=== PATIENT | female | born 1960 | race Caucasian/White ===

== ENCOUNTER 2016-09-21 19:45 | Emergency (ER) | payer MEDICAID ==
[~2016-09-21] VITALS: Ht 165.1 cm; Wt 63.5 kg
--- NOTE | 2016-09-21 20:22 | NUR ---
CALLED FOR TRIAGE; INFORMED "PT WENT TO HER CAR"
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
--- NOTE | 2016-09-21 21:00 | NUR ---
PT WAS SEEN BY DR. HAMMONDS.
--- NOTE | 2016-09-21 21:11 | NUR ---
PT REFUSED TO BE TREATED BY DR. HAMMONDS AND DID NOT WANT US TO CALL THE [employer]. Patient given information related to possible complications, up to and including , which could occur as a result of leaving the hospital at this time. Patient verbalizes understanding of risks involved due to leaving against medical advice. Patient has signed AMA form.
--- NOTE | 2016-09-21 21:11 | NUR ---
Note [email or web address] in EDM - 09/21/16 at 2141 by [email or web address] PT REFUSED TO BE SEEN AND DID NOT WANT US TO CALL THE [employer]. Patient does not wish to BE SEEN by Dr. HAMMONDS. Patient given information related to possible complications, up to and including , which could occur as a result of leaving the hospital at this time. Patient verbalizes understanding of risks involved due to leaving against medical advice. Patient has signed AMA form.
[2016-09-21 21:52] VITALS: BP 112/87
== END 2016-09-21 21:11 | disposition left against medical advice (07) ==
LOC: ER 19:50
DX: T74.21XA Adult sexual abuse, confirmed, initial encounter (principal); J45.909 Unspecified asthma, uncomplicated; Z88.0 Allergy status to penicillin
CPT/HCPCS: A4606; Z7502; Z7610

== ENCOUNTER 2018-10-21 17:08 | Emergency (ER) | payer MEDICAID, OTHER ==
[~2018-10-21] VITALS: Ht 162.6 cm; Wt 66.7 kg
[2018-10-21 17:37] VITALS: BP 131/74
--- NOTE | 2018-10-21 18:20 | NUR ---
PHARMACY TECHNICIAN ASSISTANT IN THE ROOM. PT IS NOT THERE. WILL SEE IF THE PT IS IN THE BATHROOM.
== END 2018-10-21 18:47 | disposition left against medical advice (07) ==
LOC: ER 17:09
DX: J06.9 Acute upper respiratory infection, unspecified (principal); J45.909 Unspecified asthma, uncomplicated; F17.200 Nicotine dependence, unspecified, uncomplicated; Z88.0 Allergy status to penicillin
CPT/HCPCS: Z7502

== ENCOUNTER 2023-01-16 02:06 | Emergency (ER) | payer OTHER ==
[~2023-01-16] VITALS: Ht 165.1 cm; Wt 74.8 kg
[2023-01-16] MEDS ORDERED: IBUPROFEN 400 MG TABLET ONE (03:54)
[2023-01-16] MEDS ORDERED: IBUPROFEN 400 MG TABLET PO ONE (04:00)
[2023-01-16 04:05] VITALS: BP 131/78; TEMP 98.1; O2SAT 98
== END 2023-01-16 04:07 | disposition home or self-care (01) ==
LOC: ER 02:13
DX: R51.9 Headache, unspecified (principal); J45.909 Unspecified asthma, uncomplicated; F17.200 Nicotine dependence, unspecified, uncomplicated; Z88.0 Allergy status to penicillin; Z88.8 Allergy status to other drugs, medicaments and biological substances
CPT/HCPCS: 70450-TC